=== PATIENT | female | born 1995 ===

== ENCOUNTER 2024-12-30 11:15 | Inpatient (IN) | payer OTHER ==
[2025-01-03] MEDS ORDERED: METHYLPREDNISOLONE ACETATE 80 MG/ML VIAL ONE (07:07)
[2025-01-03] MEDS ORDERED: VANCOMYCIN HCL 1,000 MG VIAL ONE ×2 (07:15→08:18)
[2025-01-03] MEDS ORDERED: CEFAZOLIN SODIUM 1,000 MG VIAL ONE (07:15)
[2025-01-03] MEDS ORDERED: MEDROLPACK PO (07:21)
[2025-01-03] MEDS ORDERED: PERCOCET 5-3251 EACH PO (07:21)
[2025-01-03] MEDS ORDERED: AMOX-CLAV 875-1 EACH PO (07:22)
[2025-01-03] MEDS ORDERED: COLACE100 MG PO (07:22)
[2025-01-03] MEDS ORDERED: GABAPENTIN100 M2 PO (07:22)
[2025-01-03] MEDS ORDERED: NEURONTIN800 MG PO (07:23)
[2025-01-03] MEDS ORDERED: BUPIVACAINE HCL/MPF 0.5% 30ML VIAL ONE (08:19)
[2025-01-03] MEDS ORDERED: LIDOCAINE HCL 1%/EPINEPHRINE 20ML VIAL IJ ONE (08:19)
[2025-01-03] MEDS ORDERED: HEMOSTATIC MATRIX 1 KIT KIT TOP ONE (08:44)
[2025-01-03] MEDS ORDERED: HEMOSTATIC MATRIX WITH THROMBIN KIT TOP ONE (09:00)
== END 2025-01-03 13:20 | disposition home or self-care (01) | DRG 520 ==
LOC: ADM 11:15 → O/R 01-03 05:22 → CIR.AMB 01-03 07:00 → SURH 01-03 11:15 → EDSTATUS 01-03 11:15 → CIR.AMB 01-03 11:15 → O/R 01-03 13:20
PROVIDERS: ADMIT Orthopaedic Surgery Orthopaedic Surgery of the Spine; ATTEND Orthopaedic Surgery Orthopaedic Surgery of the Spine
PROC: 01NB0ZZ Release Lumbar Nerve, Open Approach (ICD-10-PCS; 2025-01-03)
PROC: 4A1104G Monitoring of Peripheral Nervous Electrical Activity, Intraoperative, Open Approach (ICD-10-PCS; 2025-01-03)
PROC: 0SB20ZZ Excision of Lumbar Vertebral Disc, Open Approach (ICD-10-PCS; principal; 2025-01-03 07:00)
DX: M51.26 Other intervertebral disc displacement, lumbar region (principal); M54.16 Radiculopathy, lumbar region